=== PATIENT | male | born 1970 | race Caucasian/White ===

== ENCOUNTER 2017-08-09 16:35 | Emergency (ER) | payer OTHER ==
[2017-08-09 16:40] VITALS: BP 143/82; PULSE 66; TEMP 98.6; BMI 34.0
[2017-08-09] MEDS ORDERED: KETOROLAC TROMETHAMINE 15 MG/ML VIAL IM ONE (16:56)
[2017-08-09] MEDS ORDERED: ACETAMINOPHEN WITH CODEINE 300MG/30MG TABLET PO ONE (16:57)
[2017-08-09] MEDS ORDERED: ACETAMINOPHEN WITH CODEINE 300MG/30MG TABLET ONE (17:00)
[2017-08-09] MEDS ORDERED: KETOROLAC TROMETHAMINE 30 MG/1 ML VIAL ONE (17:00)
--- NOTE | 2017-08-09 17:27 | PDOC ---
History of Present Illness <Sami Mack - Last Filed: 08/09/17 17:47> - General History Source: Patient Exam Limitations: No Limitations - History of Present Illness Initial Comments: 08/09/17 18:13 46 year old male, with significant past medical history of L3 and L4 herniated discs, who presents to the emergency room complaining of 3 days of lower back pain that radiates down the left buttock and left thigh. He describes the pain as sharp and burning. 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 He attempted to make an appointment with his new PCP, but the next available appointment was on 08/26/17. Tried tylenol w/o relief. He denies any recent heavy lifting or trauma. Denies neck pain. Denies leg swelling, weakness, numbness. Denies urinary or stool incontinence or retention. Allergies: NKA <Afsaneh Ponce - Last Filed: 08/09/17 18:14> - General Chief Complaint: Back Pain Stated Complaint: BACK PAIN Time Seen by Provider: 08/09/17 16:56 Past History - Past Medical History COPD: No Other medical history: DENIES - Suicide/Smoking/Psychosocial Hx Smoking History: Never smoked Have you smoked in the past 12 months: No Information on smoking cessation initiated: No Hx Alcohol Use: No Drug/Substance Use Hx: No <Sami aMck - Last Filed: 08/09/17 17:47> <Afsaneh Ponce - Last Filed: 08/09/17 18:14> - Past Medical History Allergies/Adverse Reactions: Allergies Allergy/AdvReac Type Severity Reaction Status Date / Time No Known Allergies Allergy Verified 08/09/17 16:35 Home Medications: Ambulatory Orders NK [No Known Home Medication] 08/09/17 Review of Systems - Review of Systems Able to Perform ROS?: Yes Comments:: 08/09/17 18:13 GENERAL/CONSTITUTIONAL: No fever or chills. No weakness. HEAD, EYES, EARS, NOSE AND THROAT: No change in vision. No ear pain or discharge. No sore throat. GASTROINTESTINAL: No nausea, vomiting, diarrhea or constipation. GENITOURINARY: No dysuria, frequency, or change in urination. CARDIOVASCULAR: No chest pain or shortness of breath. RESPIRATORY: No cough, wheezing, or hemoptysis. MUSCULOSKELETAL: +lower back pain that radiates to the left buttock and thigh. No neck pain. SKIN: No rash NEUROLOGIC: No headache, vertigo, loss of consciousness, or change in strength/ sensation. ENDOCRINE: No increased thirst. No abnormal weight change. HEMATOLOGIC/LYMPHATIC: No anemia, easy bleeding, or history of blood clots. ALLERGIC/IMMUNOLOGIC: No hives or skin allergy. <Afsaneh Ponce - Last Filed: 08/09/17 18:14> *Physical Exam - Vital Signs Last Vital Signs Temp Pulse Resp BP Pulse Ox 98.6 F 66 18 143/82 98 08/09/17 16:35 08/09/17 16:35 08/09/17 16:35 08/09/17 16:35 08/09/17 16:35 <Sami Mack - Last Filed: 08/09/17 17:47> - Vital Signs Last Vital Signs Temp Pulse Resp BP Pulse Ox 98.6 F 66 18 143/82 98 08/09/17 16:35 08/09/17 16:35 08/09/17 16:35 08/09/17 16:35 08/09/17 16:35 - Physical Exam Comments: 08/09/17 18:13 GENERAL: Awake, alert, and fully oriented, in no acute distress HEAD: No signs of trauma EYES: PERRLA, EOMI, sclera anicteric, conjunctiva clear ENT: Auricles normal inspection, hearing grossly normal, nares patent, oropharynx clear without exudates. Moist mucosa NECK: Normal ROM, supple, no lymphadenopathy, JVD, or masses LUNGS: Breath sounds equal, clear to auscultation bilaterally. No wheezes, and no crackles HEART: Regular rate and rhythm, normal S1 and S2, no murmurs, rubs or gallops ABDOMEN: Soft, nontender, normoactive bowel sounds. No guarding, no rebound. No masses EXTREMITIES: Normal range of motion, no edema. No clubbing or cyanosis. No cords, erythema, or tenderness BACK: No midline spinal tenderness in cervical/thoracic/lumbar region. +ttp in paraspinal lumbosacral area. NEUROLOGICAL: Normal speech, cranial nerves intact, negative pronator drift, 5/ 5 strength in all 4 extremities, normal sensation to light touch in all 4 extremities, normal cerebellar exam, normal gait, normal reflexes and tone SKIN: Warm, Dry, normal turgor, no rashes or lesions noted. <Afsaneh Ponce - Last Filed: 08/09/17 18:14> ED Treatment Course - Medications Given in the ED: ED Medications Discontinued Medications Generic Name Dose Route Start Last Admin Trade Name Freq PRN Reason Stop Dose Admin Acetaminophen/Codeine Phosphate 1 tab 08/09/17 16:57 08/09/17 17:05 Tylenol # 3 - PO 08/09/17 16:58 1 tab ONCE ONE Administration Ketorolac Tromethamine 30 mg 08/09/17 16:56 08/09/17 17:05 Toradol Injection - IM 08/09/17 16:57 30 mg ONCE ONE Administration <Sami Mack - Last Filed: 08/09/17 17:47> - Medications Given in the ED: ED Medications Discontinued Medications Generic Name Dose Route Start Last Admin Trade Name Freq PRN Reason Stop Dose Admin Acetaminophen/Codeine Phosphate 1 tab 08/09/17 16:57 08/09/17 17:05 Tylenol # 3 - PO 08/09/17 16:58 1 tab ONCE ONE Administration Ketorolac Tromethamine 30 mg 08/09/17 16:56 08/09/17 17:05 Toradol Injection - IM 08/09/17 16:57 30 mg ONCE ONE Administration <Afsaneh Ponce - Last Filed: 08/09/17 18:14> Medical Decision Making - Medical Decision Making 08/09/17 17:24 46-year-old male with a history of lumbar disc herniations presents with acute on chronic low back pain radiating down the L buttock consistent with scaitica. He denies any red flag symptoms of urinary or stool incontinence/retention. Exam with paraspinal ttp in the lumbosacral area. Normal strength, sensation and reflexes in the lower extremities. WIll control pain and likely DC. <Sami Mack - Last Filed: 08/09/17 17:47> *DC/Admit/Observation/Transfer - Discharge Dispostion Admit: No - Attestations Physician Attestion: 08/09/17 17:50 I, Dr. Sami Mack MD, attest that this document has been prepared under my direction and personally reviewed by me in its entirety. I further attest, that it accurately reflects all work, treatment, procedures and medical decision -making performed by me. <Sami Mack - Last Filed: 08/09/17 17:47> - Attestations Scribe Attestion: 08/09/17 18:14 Documentation prepared by LUANNE Tena, acting as medical record assistant for Sami Mack MD. <Afsaneh Ponce - Last Filed: 08/09/17 18:14> Diagnosis at time of Disposition: Sciatica - Discharge Dispostion Disposition: HOME Condition at time of disposition: Stable - Referrals Referrals: Brodie Byrd MD [Staff Physician] - - Patient Instructions Printed Discharge Instructions: DI for Back Pain With Sciatica Additional Instructions: Take naproxen twice a day as needed for pain. Call Dr. Byrd's office tomorrow for a follow-up appointment with the primary doctor within 1 week. Return to the emergency department if you have any new, worsening or concerning symptoms.
== END 2017-08-09 17:40 | disposition home or self-care (01) ==
LOC: FER 16:35
PROC: 3E0233Z Introduction of Anti-inflammatory into Muscle, Percutaneous Approach (ICD-10-PCS; principal; 2017-08-09)
DX: M54.30 Sciatica, unspecified side (principal)
CPT/HCPCS: 99282-25

== ENCOUNTER 2017-11-02 16:20 | Emergency (ER) | payer OTHER ==
[2017-11-02 16:30] VITALS: BP 119/70; PULSE 75; TEMP 98.2; BMI 33.0
[2017-11-02] MEDS ORDERED: KETOROLAC TROMETHAMINE 60 MG/2 ML VIAL IM ONE (17:22)
[2017-11-02] MEDS ORDERED: KETOROLAC TROMETHAMINE 60 MG/2 ML VIAL ONE (17:23)
[2017-11-02] MEDS ORDERED: CYCLOBENZAPRINE HCL 10 MG TABLET (FP) PO ONE (17:23)
--- NOTE | 2017-11-02 17:27 | PDOC ---
History of Present Illness - General History Source: Patient <Roshan Ortega - Last Filed: 11/02/17 17:27> - History of Present Illness Initial Comments: 11/02/17 17:40 Patient is a 47 M, with PMHx of L3 and L4 herniated discs, who presents for 2 days of lower back pain. Patient was here in July for the same pain. 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 He describes his back pain as as sharp, intermittent, worse when trying to sit. Denies neck pain. Denies leg swelling, weakness, numbness. Denies urinary or stool incontinence or retention Allergies: NKDA <Patience Zhang - Last Filed: 11/02/17 17:45> - General Chief Complaint: Back Pain Stated Complaint: BACK PAIN Time Seen by Provider: 11/02/17 16:29 Past History - Past Medical History COPD: No Other medical history: DENIES - Suicide/Smoking/Psychosocial Hx Smoking History: Never smoked Have you smoked in the past 12 months: No Information on smoking cessation initiated: No Hx Alcohol Use: No Drug/Substance Use Hx: No Substance Use Type: None <Roshan Ortega - Last Filed: 11/02/17 17:27> <Patience Zhang - Last Filed: 11/02/17 17:45> - Past Medical History Allergies/Adverse Reactions: Allergies Allergy/AdvReac Type Severity Reaction Status Date / Time No Known Allergies Allergy Verified 11/02/17 16:24 Home Medications: Ambulatory Orders Ibuprofen [Motrin -] 600 mg PO TID #21 tablet 11/02/17 Methocarbamol [Robaxin -] 500 mg PO BID #14 tablet 11/02/17 Review of Systems - Review of Systems Comments:: 11/02/17 17:40 CONSTITUTIONAL: Absent: fever, no chills, no fatigue EYES: Absent: visual changes ENT: Absent: ear pain, no sore throat CARDIOVASCULAR: Absent: chest pain, no palpitations RESPIRATORY: Absent: cough, no SOB GI: Absent: abdominal pain, no nausea, no vomiting, no constipation, no diarrhea GENITOURINARY: Absent: dysuria, no frequency, no hematuria MUSCULOSKELETAL: Present: right lower back pain SKIN: Absent: rash <Patience Zhang - Last Filed: 03/06/18 17:45> *Physical Exam - Vital Signs Last Vital Signs Temp Pulse Resp BP Pulse Ox 98.2 F 75 18 119/70 99 11/02/17 16:20 11/02/17 16:20 11/02/17 16:20 11/02/17 16:20 11/02/17 16:20 <Roshan Ortega S - Last Filed: 11/02/17 17:27> - Vital Signs Last Vital Signs Temp Pulse Resp BP Pulse Ox 98.2 F 75 18 119/70 99 11/02/17 16:20 11/02/17 16:20 11/02/17 16:20 11/02/17 16:20 11/02/17 16:20 - Physical Exam Comments: 11/02/17 17:41 GENERAL: Well-appearing, well-nourished. No apparent distress. HEENT: Normocephalic, atraumatic. PERRL, EOM intact. CARDIOVASCULAR: Normal S1, S2. Regular rate and rhythm. PULMONARY: Clear to auscultation bilaterally. ABDOMEN: Soft, non-distended, non-tender. BACK: Lumbar paraspinal tenderness and increased pain with extension of right leg. EXTREMITIES: Normal ROM in all four extremities. No gross deformities. SKIN: Warm, dry. No rash NEUROLOGICAL: No focal neurological deficits. No urinary incontinence. No drop foot. <Patience Zhang - Last Filed: 11/02/17 17:45> ED Treatment Course - Medications Given in the ED: ED Medications Discontinued Medications Generic Name Dose Route Start Last Admin Trade Name Freq PRN Reason Stop Dose Admin Cyclobenzaprine HCl 10 mg 11/02/17 17:23 11/02/17 17:33 Flexeril - PO 11/02/17 17:24 10 mg ONCE ONE Administration Ketorolac Tromethamine 60 mg 11/02/17 17:22 11/02/17 17:30 Toradol Injection - IM 11/02/17 17:23 60 mg ONCE ONE Administration <Patience Zhang - Last Filed: 11/02/17 17:45> *DC/Admit/Observation/Transfer - Discharge Dispostion Admit: No <Roshan Ortega S - Last Filed: 11/02/17 17:27> <Patience Zhang - Last Filed: 11/02/17 17:45> Diagnosis at time of Disposition: Sciatica Qualifiers: Laterality: right Qualified Code(s): M54.31 - Sciatica, right side - Discharge Dispostion Disposition: HOME Condition at time of disposition: Improved - Prescriptions Prescriptions: Ibuprofen [Motrin -] 600 mg PO TID #21 tablet Methocarbamol [Robaxin -] 500 mg PO BID #14 tablet - Referrals Referrals: Neil March MD [Staff Physician] - - Patient Instructions Printed Discharge Instructions: DI for Sciatica
[2017-11-02] MEDS ORDERED: CYCLOBENZAPRINE HCL 10 MG TABLET (FP) ONE (17:28)
== END 2017-11-02 17:49 | disposition home or self-care (01) ==
LOC: FER 16:20
PROC: 3E0233Z Introduction of Anti-inflammatory into Muscle, Percutaneous Approach (ICD-10-PCS; principal; 2017-11-02)
DX: M54.31 Sciatica, right side (principal)
CPT/HCPCS: 99282-25